=== PATIENT | male | born 1960 | race Caucasian/White ===

== ENCOUNTER → 2016-11-21 | Outpatient (CLI) | payer OTHER ==
--- NOTE | 2016-11-21 14:40 | US ---
EXAMINATION TYPE: US venous doppler duplex LE RT DATE OF EXAM: 11/21/2016 2:34 PM COMPARISON: NONE CLINICAL HISTORY: M79.661 PAIN RT LOWER LIMB. SIDE PERFORMED: Right VESSELS IMAGED: External Iliac Vein (EIV) Common Femoral Vein Deep Femoral Vein Greater Saphenous Vein * Femoral Vein Popliteal Vein Small Saphenous Vein * Proximal Calf Veins (* superficial vessels) TECHNOLOGIST IMPRESSION: wnl Right Leg: Negative for DVT No popliteal fossa lesion was identified. IMPRESSION: THIS EXAMINATION IS NEGATIVE FOR DVT WITHIN THE RIGHT LEG.
== END | disposition home or self-care (01) ==
LOC: RADUSWWP 14:02
PROVIDERS: ATTEND Orthopaedic Surgery
DX: M79.661 Pain in right lower leg (principal)

== ENCOUNTER → 2018-11-30 | Outpatient (CLI) | payer OTHER ==
--- NOTE | 2018-12-05 09:25 | P.ARTDOP ---
Arterial Doppler LOWER EXTREMITY ARTERIAL DOPPLER: DATE OF SERVICE: 11/30/2018 Reason for study: Claudication. Doppler waveforms: Multiphasic bilaterally throughout. Pulse volume recording: Normal configuration. Pressure gradients: None. Ankle-brachial indices: Greater than 1 bilaterally. Toe pressures: 129 on the right, 134on the left Impression: Normal study.
== END ==
LOC: RADUSWWP 10:10
PROVIDERS: ATTEND Family Medicine
DX: I70.213 Atherosclerosis of native arteries of extremities with intermittent claudication, bilateral legs (principal)
CPT/HCPCS: 93923

== ENCOUNTER 2023-04-02 10:39 | Emergency (ER) | payer OTHER ==
[2023-04-02 11:14] VITALS: RESP 18
--- NOTE | 2023-04-02 11:56 | ED ---
Wound/Laceration HPI - General Chief Complaint: Wound/Laceration Stated Complaint: Right finger injury Time Seen by Provider: 04/02/23 11:26 Source: patient, RN notes reviewed Mode of arrival: ambulatory - History of Present Illness Initial Comments: Patient is 62-year-old male presented to ER with chief complaint of a finger laceration. Patient was seen in urgent care prior and received Rocephin and tetanus vaccination. Patient was hedging and the blade cut his finger. Pain denies paresthesias, limited ROM, or blood thinner use. No other complaints at this time. - Related Data Home Medications Medication Instructions Recorded Confirmed Lansoprazole [Prevacid] 15 mg PO DAILY 08/12/16 10/03/16 Docusate [Colace] 100 mg PO DAILY PRN 09/20/16 10/03/16 amLODIPine [Norvasc] 5 mg PO DAILY 09/26/16 10/03/16 Hydrocodone/Acetaminophen [[place] 1 tab PO Q6H PRN 10/03/16 10/03/16 10-325] hydrOXYzine pamoate [Vistaril] 25 mg PO Q6HR PRN 10/03/16 10/03/16 Previous Rx's Medication Instructions Recorded Aspirin 325 mg PO BID #60 tab 09/28/16 traMADol HCl [Ultram] 50 mg PO Q6H PRN #40 tab 09/28/16 Allergies Allergy/AdvReac Type Severity Reaction Status Date / Time No Known Allergies Allergy Verified 04/02/23 11:15 Review of Systems ROS Statement: Those systems with pertinent positive or pertinent negative responses have been documented in the HPI. ROS Other: All systems not noted in ROS Statement are negative. Past Medical History Past Medical History: GERD/Reflux Additional Past Medical History / Comment(s): using a cane History of Any Multi-Drug Resistant Organisms: None Reported Past Surgical History: Appendectomy, Joint Replacement, Orthopedic Surgery Additional Past Surgical History / Comment(s): 08/15/16 total R knee arthroplasy. LEFT KNEE ARTHROSCOPY, R index finger surgery x2, colonoscopy; Left total knee arthroplasty 09/26/16 Past Anesthesia/Blood Transfusion Reactions: No Reported Reaction Past Psychological History: No Psychological Hx Reported Smoking Status: Never smoker Past Alcohol Use History: Occasional Past Drug Use History: None Reported - Past Family History Father Family Medical History: Cancer Mother Family Medical History: No Reported History General Exam Limitations: no limitations General appearance: alert, in no apparent distress Respiratory exam: Present: normal lung sounds bilaterally. Absent: respiratory distress, wheezes, rales, rhonchi, stridor Cardiovascular Exam: Present: regular rate, normal rhythm, normal heart sounds. Absent: systolic murmur, diastolic murmur, rubs, gallop, clicks Extremities exam: Present: other (Right third finger laceration extending from pad through the nailbed.2 cm) Neurological exam: Present: alert, oriented X3 Skin exam: Present: warm, dry, intact, normal color. Absent: rash Course Vital Signs 04/02/23 11:09 Temperature 97.8 F Pulse Rate 67 Respiratory 18 Rate Blood Pressure 123/73 O2 Sat by Pulse 97 Oximetry Procedures - Laceration Laceration #1 Consent Obtained: verbal consent Indication: laceration Site: hand Size (cm): 2 Description: linear Depth: simple, single layer Anesthetic Used: lidocaine 1% Anesthesia Technique: local infiltration Pre-repair: wound explored, irrigated extensively, deep structures intact Type of Sutures: nylon Size of Sutures: 4-0 Number of Sutures: 3 Technique: simple, interrupted Patient Tolerated Procedure: well, no complications Medical Decision Making - Medical Decision Making Was pt. sent in by a medical professional or institution (LANNY Krause, INSURANCE SALES EXECUTIVE, urgent care, hospital, or senior care...) When possible be specific @ -Urgent care Did you speak to anyone other than the patient for history (EMS, parent, family, police, friend...)? What history was obtained from this source @ -No Did you review nursing and triage notes (agree or disagree)? Why? @ -I reviewed and agree with nursing and triage notes Were old charts reviewed (outside hosp., previous admission, EMS record, old EKG, old radiological studies, urgent care reports/EKG's, senior care records)? Report findings @ -No old charts were reviewed Differential Diagnosis (chest pain, altered mental status, abdominal pain women, abdominal pain men, vaginal bleeding, weakness, fever, dyspnea, syncope, headache, dizziness, GI bleed, back pain, seizure, CVA, palpatations, mental health, musculoskeletal)? @ -Finger laceration, finger fracture, open fracture EKG interpreted by me (3pts min.). @ -None X-rays interpreted by me (1pt min.). @ -X-rays negative for acute fracture CT interpreted by me (1pt min.). @ -None done U/S interpreted by me (1pt. min.). @ -None done What testing was considered but not performed or refused? (CT, X-rays, U/S, labs)? Why? @ -None What meds were considered but not given or refused? Why? @ -None Did you discuss the management of the patient with other professionals (professionals i.e. , PA, INSURANCE SALES EXECUTIVE, lab, RT, psych nurse, neonatal social worker, demurrage worker, teacher, evp and chief operating officer, sample case porter)? Give summary @ -No Was smoking cessation discussed for >3mins.? @ -No Was critical care preformed (if so, how long)? @ -No Were there social determinants of health that impacted care today? How? (Homelessness, low income, unemployed, alcoholism, drug addiction, transportation, low edu. Level, literacy, decrease access to med. care, residential, rehab)? @ -No Was there de-escalation of care discussed even if they declined (Discuss DNR or withdrawal of care, Hospice)? DNR status @ -No What co-morbidities impacted this encounter? (DM, HTN, Smoking, COPD, CAD, Cancer, CVA, ARF, Chemo, Hep., AIDS, mental health diagnosis, sleep apnea, morbid obesity)? @ -None Was patient admitted / discharged? Hospital course, mention meds given and route, prescriptions, significant lab abnormalities, going to OR and other pertinent info. @ -Patient's tetanus is updated at urgent care, did receive antibiotics. Patient had finger laceration repaired with no complications return parameters were discussed. Undiagnosed new problem with uncertain prognosis? @ -No Drug Therapy requiring intensive monitoring for toxicity (Heparin, Nitro, Insulin, Cardizem)? @ -No Were any procedures done? @ -No Diagnosis/symptom? @ -Finger laceration Acute, or Chronic, or Acute on Chronic? @ -Acute Uncomplicated (without systemic symptoms) or Complicated (systemic symptoms)? @ -Uncomplicated Side effects of treatment? @ -No Exacerbation, Progression, or Severe Exacerbation? @ -No Poses a threat to life or bodily function? How? (Chest pain, [place], [place], pneumonia, PE, COPD, DKA, ARF, appy, cholecystitis, CVA, Diverticulitis, Homicidal, Suicidal, threat to staff... and all critical care pts) @ -No Disposition Clinical Impression: Finger laceration Disposition: HOME SELF-CARE Condition: Stable Additional Instructions: Have sutures removed in 10 days. Please return to the Emergency Department if symptoms worsen or any other concerns. Is patient prescribed a controlled substance at d/c from ED?: No Referrals: Og Frankel MD [Primary Care Provider] - 1-2 days Time of Disposition: 12:48
--- NOTE | 2023-04-02 12:28 | XR ---
EXAMINATION TYPE: XR hand complete RT DATE OF EXAM: 04/02/2023 CLINICAL HISTORY: pain TECHNIQUE: Frontal, lateral and oblique images of the right hand are obtained. COMPARISON: None. FINDINGS: There is no acute fracture/dislocation evident. Severe degenerative change first carpometa carpal joint with bony fragmentation and sclerosis noted. Degenerative narrowing DIP joint right four th digit. Soft tissue laceration without radiopaque foreign body. IMPRESSION: There is no acute fracture or dislocation ICD 10 NO FRACTURE, INITIAL EVALUATION
[2023-04-02] MEDS ORDERED: LIDOCAINE 1% INJ 10MG/ML (30 ML VIAL-PF) SQ ONE (12:44)
[2023-04-02 13:14] VITALS: BP 125/71; PULSE 71; TEMP 98
== END 2023-04-02 13:13 | disposition home or self-care (01) ==
LOC: EC 10:39
DX: S61.219A Laceration without foreign body of unspecified finger without damage to nail, initial encounter (principal); K21.9 Gastro-esophageal reflux disease without esophagitis; Z79.899 Other long term (current) drug therapy; W26.0XXA Contact with knife, initial encounter
CPT/HCPCS: 73130; 99283; 12001; J2001

== ENCOUNTER 2024-02-24 01:27 | Emergency (ER) | payer OTHER ==
[2024-02-24] MEDS: DEXAMETHASONE SOD PHOSPHATE 10 MG/ML 1 ML VIAL IM STA (01:56)
[2024-02-24] MEDS: KETOROLAC 15 MG/ML 1 ML VIAL IM STA (01:56)
[2024-02-24] MEDS: HYDROmorphone 1 MG/ML 1 ML SYRINGE IM STA (01:57)
--- NOTE | 2024-02-24 02:48 | ED ---
Neck Injury/Pain HPI - General Chief Complaint: Neck Pain/Injury Stated Complaint: Neck Pain Time Seen by Provider: 02/24/24 01:38 Mode of arrival: EMS Limitations: no limitations - History of Present Illness Initial Comments: 63-year-old male presenting with chief complaint of neck pain. Neck pain started today. Patient states that he was moving cement blocks yesterday, he did not have any obvious injury but thinks that he strained his neck. Pain has been worsening throughout the day. Pain stays in the neck. He has no radiation of pain down the arms. No fevers. No numbness, tingling, weakness. - Related Data Home Medications Medication Instructions Recorded Confirmed Lansoprazole [Prevacid] 15 mg PO DAILY 08/12/16 10/03/16 Docusate [Colace] 100 mg PO DAILY PRN 09/20/16 10/03/16 amLODIPine [Norvasc] 5 mg PO DAILY 09/26/16 10/03/16 Hydrocodone/Acetaminophen [[place] 1 tab PO Q6H PRN 10/03/16 10/03/16 10-325] hydrOXYzine pamoate [Vistaril] 25 mg PO Q6HR PRN 10/03/16 10/03/16 Previous Rx's Medication Instructions Recorded Aspirin 325 mg PO BID #60 tab 09/28/16 traMADol HCl [Ultram] 50 mg PO Q6H PRN #40 tab 09/28/16 Cyclobenzaprine [Flexeril] 10 mg PO TID PRN #15 tab 02/24/24 Allergies Allergy/AdvReac Type Severity Reaction Status Date / Time No Known Allergies Allergy Verified 02/24/24 01:32 Review of Systems ROS Statement: Those systems with pertinent positive or pertinent negative responses have been documented in the HPI. ROS Other: All systems not noted in ROS Statement are negative. Past Medical History Past Medical History: GERD/Reflux Additional Past Medical History / Comment(s): using a cane History of Any Multi-Drug Resistant Organisms: None Reported Past Surgical History: Appendectomy, Joint Replacement, Orthopedic Surgery Additional Past Surgical History / Comment(s): 08/15/16 total R knee a rthroplasy. LEFT KNEE ARTHROSCOPY, R index finger surgery x2, colonoscopy; Left total knee arthroplasty 09/26/16 Past Anesthesia/Blood Transfusion Reactions: No Reported Reaction Past Psychological History: No Psychological Hx Reported Smoking Status: Never smoker Past Alcohol Use History: Occasional Past Drug Use History: None Reported - Past Family History Father Family Medical History: Cancer Mother Family Medical History: No Reported History General Exam Limitations: no limitations General appearance: alert, in distress (Patient is yelling in pain) Head exam: Present: atraumatic, normocephalic Eye exam: Present: normal appearance, EOMI Neck exam: Present: normal inspection, tenderness Respiratory exam: Absent: respiratory distress Cardiovascular Exam: Present: regular rate Extremities exam: Present: normal inspection Neurological exam: Present: alert, oriented X3 Psychiatric exam: Present: normal affect, normal mood Skin exam: Present: warm, dry Course Vital Signs 02/24/24 02/24/24 01:32 03:02 Temperature 98.5 F 98.3 F Pulse Rate 71 72 Respiratory 22 18 Rate Blood Pressure 152/82 145/74 O2 Sat by Pulse 96 98 Oximetry Medical Decision Making - Medical Decision Making Was pt. sent in by a medical professional or institution (, PA, HYPERBARIC NURSE, urgent care, hospital, or penitentiary...) When possible be specific @ -No Did you speak to anyone other than the patient for history (EMS, parent, family, police, friend...)? What history was obtained from this source @ -No Did you review nursing and triage notes (agree or disagree)? Why? @ -I reviewed and agree with nursing and triage notes Were old charts reviewed (outside hosp., previous admission, EMS record, old EKG, old radiological studies, urgent care reports/EKG's, penitentiary records)? Report findings @ -No old charts were reviewed Differential Diagnosis (chest pain, altered mental status, abdominal pain women, abdominal pain men, vaginal bleeding, weakness, fever, dyspnea, syncope, head ache, dizziness, GI bleed, back pain, seizure, CVA, palpatations, mental health, musculoskeletal)? @ -Differential includes fracture, sprain, strain, this is not an all-inclusive list EKG interpreted by me (3pts min.). @ -As above X-rays interpreted by me (1pt min.). @ -None done CT interpreted by me (1pt min.). @ -None done U/S interpreted by me (1pt. min.). @ -None done What testing was considered but not performed or refused? (CT, X-rays, U/S, labs)? Why? @ -None What meds were considered but not given or refused? Why? @ -None Did you discuss the management of the patient with other professionals (professionals i.e. , PA, HYPERBARIC NURSE, lab, RT, psych nurse, executive secretary social welfare, sales analytics manager, teacher, community liaison officer, casework specialist)? Give summary @ -No Was smoking cessation discussed for >3mins.? @ -No Was critical care preformed (if so, how long)? @ -No Were there social determinants of health that impacted care today? How? (Homelessness, low income, unemployed, alcoholism, drug addiction, tr ansportation, low edu. Level, literacy, decrease access to med. care, nursing home, rehab)? @ -No Was there de-escalation of care discussed even if they declined (Discuss DNR or withdrawal of care, Hospice)? DNR status @ -No What co-morbidities impacted this encounter? (DM, HTN, Smoking, COPD, CAD, Cancer, CVA, ARF, Chemo, Hep., AIDS, mental health diagnosis, sleep apnea, morbid obesity)? @ -None Was patient admitted / discharged? Hospital course, mention meds given and route, prescriptions, significant lab abnormalities, going to OR and other pertinent info. @ -63-year-old male presenting with chief complaint of neck pain. No radiculopathy. No obvious injury. He was moving cement blocks yesterday. He is treated with pain medication. He reports improvement in his pain after pain medication. Discharged home. Follow-up with PCP. Report back to ER with any new or worsening symptoms. Discussed return parameters and answered all questions. Patient conveyed verbal understanding and agreed to the plan. I discussed this case in detail with my attending Dr. Reyes Undiagnosed new problem with uncertain prognosis? @ -No Drug Therapy requiring intensive monitoring for toxicity (Heparin, Nitro, Insulin, Cardizem)? @ -No Were any procedures done? @ -No Diagnosis/symptom? @ -Cervical strain Acute, or Chronic, or Acute on Chronic? @ -Acute Uncomplicated (without systemic symptoms) or Complicated (systemic symptoms)? @ -Uncomplicated Side effects of treatment? @ -No Exacerbation, Progression, or Severe Exacerbation? @ -No Poses a threat to life or bodily function? How? (Chest pain, [place], [place], pneumonia, PE, COPD, DKA, ARF, appy, cholecystitis, CVA, Diverticulitis, Homicidal, Suicidal, threat to staff... and all critical care pts) @ -Low likelihood Disposition Clinical Impression: Strain of neck muscle Disposition: HOME SELF-CARE Condition: Good Instructions (If sedation given, give patient instructions): Cervical Strain (ED) Additional Instructions: Follow-up with PCP. Report back to ER with any new or worsening symptoms. Prescriptions: Cyclobenzaprine [Flexeril] 10 mg PO TID PRN #15 tab PRN Reason: Spasms Is patient prescribed a controlled substance at d/c from ED?: No Referrals: Geneva Frankel DO [Primary Care Provider] - 1-2 days Time of Disposition: 02:47
[2024-02-24 03:50] VITALS: BP 145/74; PULSE 72; RESP 18; TEMP 98.3
== END 2024-02-24 03:03 | disposition home or self-care (01) ==
LOC: EC 01:27
DX: S16.1XXA Strain of muscle, fascia and tendon at neck level, initial encounter (principal); X58.XXXA Exposure to other specified factors, initial encounter
CPT/HCPCS: 99284; 96372 ×3; J1100; J1170; J1885

== ENCOUNTER → 2024-04-22 | Outpatient (CLI) | payer OTHER ==
--- NOTE | 2024-04-22 14:38 | US ---
EXAMINATION TYPE: US prostate transrectal DATE OF EXAM: 04/22/2024 COMPARISON: NONE CLINICAL INDICATION: Male, 63 years old with history of N40.1 BENIGN PROSTATIC HYPERPLASIA; elevated PSA This examination was performed using the transrectal probe. EXAM MEASUREMENTS: Gland Size: 5.7x4.1x5.3 Volume: 64.2 Predicted PSA: 7.7 Actual PSA (if available):6.67 ng/ml no masses noted within the peripheral zone there is a large heterogenous area measuring 3.9x3.0x4.3cm noted IMPRESSION: Prostate hypertrophy without suspicious lesion of the peripheral zone at this time. Predicted PSA = volume x 0.12 ng/ml Calculated Volume = 0.5236 x L x W x H
[2024-04-22 19:27] LABS: Albumin 4.5 g/dL (3.8-4.9); T4, Free (Free Thyroxine) 1.29 ng/dL (0.80-1.80)
[2024-04-22 20:00] LABS: Follicle Stimulating Hormone 4.2 mIU/mL; Luteinizing Hormone 3.1 mIU/mL
== END | disposition home or self-care (01) ==
LOC: RADUSWWP 13:22
PROVIDERS: ATTEND Urology
DX: N40.1 Benign prostatic hyperplasia with lower urinary tract symptoms (principal); E29.1 Testicular hypofunction
CPT/HCPCS: 36415; 76872; 82040; 82670; 82947; 83001; 83002; 84146; 84270; 84403; 84439; 84443; 84479